=== PATIENT | female | born 1995 | race Caucasian/White ===

== ENCOUNTER 2017-03-16 07:08 | Day surgery (SDC) | payer OTHER ==
[~2017-03-16] VITALS: Ht 172.7 cm; Wt 86.2 kg
[2017-03-16] VITALS (7 sets, daily range): BP systolic 94–132; BP diastolic 53–70; PULSE 62–86; TEMP 97.4–98.8
[~2017-03-16 07:08] MED LIST: MIRENA52 MG IY
[2017-03-16] MEDS ORDERED: VENTOLIN0.09 MG IH (07:54)
[2017-03-16] MEDS ORDERED: NORCO 325 MG-51 TAB PO (10:07)
== END 2017-03-16 12:50 | disposition home or self-care (01) ==
LOC: SDCO 07:08
DX: D17.1 Benign lipomatous neoplasm of skin and subcutaneous tissue of trunk (principal); J45.909 Unspecified asthma, uncomplicated; Z79.899 Other long term (current) drug therapy; F17.200 Nicotine dependence, unspecified, uncomplicated
CPT/HCPCS: J0690; J1100; J1170; J2250; J2270; J2405; J2704; J2710; J3010; J7120